=== PATIENT | female | born 1965 | race Caucasian/White ===

== ENCOUNTER 2025-03-08 10:34 | Emergency (ER) | payer BC, SELFPAY ==
--- NOTE | 2025-03-08 10:37 | ED.ALLEREA ---
HPI - Allergic Reaction General Chief complaint: Unspecified Stated complaint: tongue swollan Time Seen by Provider: 03/08/25 10:36 Source: patient Mode of arrival: ambulatory Limitations: no limitations History of Present Illness HPI narrative: Carmela is a 59 year old female patient presenting to the clinic today with c/o left lateral tongue numbness that started this morning when she woke up. Did feel as though she had some left facial numbness as well but that has resolved. Was eating popcorn last night and does not know if this is the cause or if she may have bit her tongue. She denies any difficulty swallowing, tongue swelling, drooling, facial asymmetry, slurred speech, or difficulty walking. She denies headache, visual changes, or dizziness. Related Data Home Medications ?Medication ?Instructions ?Recorded ?Confirmed ?Last Taken ?Type No Home Medications 03/08/25 03/08/25 Unknown History Allergies Allergy/AdvReac Type Severity Reaction Status Date / Time No Known Allergies Allergy Verified 03/08/25 10:55 Review of Systems Review of Systems: Pertinent positives per HPI. Patient denies any fever, chills, rash, headache, visual changes, dizziness, cough, shortness of breath, chest pain, palpitations, nausea, vomiting, diarrhea, constipation, abdominal pain, or any urinary issues. PMFSH Comments At the time of my signature, I reviewed and agree with the nursing past medical, surgical, social, and family history. There is no relevant family history pertinent to the patient complaint. Exam Narrative: General: Well-developed, well nourished, in no apparent distress Head: Normocephalic, atraumatic Eyes: Pupils equally round and reactive to light bilaterally, EOM intact, sclera and conjunctive clear, no discharge, lids normal Ears: TMs intact and clear, ear canals clear, no drainage, grossly hearing normal. Nose: Nares patent, no discharge, no inflammation, no sinus tenderness. Mouth: Oropharynx without lesions or masses, good dentition, MMM. Tongue midline, even rise and fall of uvula Neck: Supple, trachea midline, no enlargement of anterior or posterior cervical nodes, no thyroid masses or goiter palpable. Cardio: Regular rate and rhythm, s1 and s2 normal, no murmur appreciated. Resp: Clear to auscultation bilaterally anteriorly and posteriorly, no rhonchi, rales, wheezing or rubs Musculoskeletal: No deformity, non-tender to palpation, grossly normal range of motion, muscle strength strong and equal, peripheral pulse strong, no edema, no cyanosis, normal gait and station Neuro: Alert and oriented x4 with normal speech, no focal deficits, cranial nerves I through XII intact, muscle strength 5 out of 5, sensation intact bilaterally, negative Romberg test Course Course Emergency Course: Portions of this record may have been created with voice recognition software. Level of Care: Express Care Visit Vital Signs Vital signs: Vital Signs Temperature 37.1 C 03/08/25 10:39 Pulse Rate 83 03/08/25 10:39 Respiratory Rate 20 03/08/25 10:39 Blood Pressure 143/77 H 03/08/25 10:39 Pulse Oximetry 99 03/08/25 10:39 Oxygen Delivery Room Air 03/08/25 10:39 Temperature 37.1 C 03/08/25 10:39 Pulse Rate 83 03/08/25 10:39 Respiratory Rate 20 03/08/25 10:39 Blood Pressure 143/77 H 03/08/25 10:39 Pulse Oximetry 99 03/08/25 10:39 Oxygen Delivery Room Air 03/08/25 10:39 Vital signs reviewed MDM - Allergic Reaction MDM Narrative Medical decision making narrative: At the time of visit patient is resting comfortably on the exam table. Patient appears to be nontoxic. c/o left lateral tongue numbness that started this morning when she woke up. Did feel as though she had some left facial numbness as well but that has resolved. Was eating popcorn last night and does not know if this is the cause or if she may have bit her tongue. She denies any difficulty swallowing, tongue swelling, drooling, facial asymmetry, slurred speech, or difficulty walking. She denies headache, visual changes, or dizziness. On exam there are no lesions or sores seen to the left lateral tongue. No oropharyngeal lesions or masses, Neuro exam is negative. Tongue is midline with strong movement side to side- with even rise and fall of the uvula. Normal sensation to bilateral cheeks with palpation. Plan: I suspect patient has tongue paresthesia. Offer to send patient to the ER for further evaluation and she declined at this time. Recommend going to the emergency room if her symptoms worsen. Stroke/Ibarra's palsy symptoms were reviewed with the patient. Supportive measures were discussed with the patient and they voiced understanding discharge instructions and agrees to treatment plan. Return precautions reviewed Differential Diagnosis Differential diagnosis: Likely allergic reaction, angioedema and other (Ibarra's palsy, CVA, paresthesia, tongue injury, tongue lesion, herpes,) Discharge Plan Discharge Clinical Impression: Paresthesia of tongue Patient Disposition: Home Condition: Stable Instructions: Antibiotic Form, Paresthesia (ED) Additional Instructions: Urine neurologically intact-no sign of Ibarra's palsy or CVA at this time. Blood pressure is mildly elevated in the clinic 143/77 Offered to send you to the ER for further evaluation you declined. Recommend going home to observe If your symptoms worsen recommend going to the emergency room for further evaluation Follow-up with your PCP in 3-5 days if symptoms persist. Patient Language: [place] Prescriptions: No Action No Home Medications Follow-up/Referrals: Yuridia,HALIMA Chun [Primary Care Provider] Time of Disposition: 10:57 Quality NIHSS Nursing Documentation ED NIHSS nursing documentation: reviewed/agree
--- OUTSIDE RECORDS SUMMARY | 2025-03-08 10:37 | XMS_ITS | Clinical Summary ---
Author Organization [facility] Address [address] [place] [address] Care Team Providers Care Livestock Ranch Hand Name Role Phone Lay Shi NP Primary Care Provider [phone] Immunizations Immunization Administration Dates Next Due Influenza, Trivalent, Preservative Free, Intramu scular 05/29/2011 Tdap 05/29/2011 Medical History Medical History Date Comments Ganglion of wrist Ganglion of wr ist - (Added by Conv) Family History Medical History Relation Name Comments Alcohol abuse Father Alcoholism - ( Added by Conv) Alzheimer's disease Father Alzheime r's Disease - (Added by Conv) Epilepsy Mother Seizure Disorde r - (Added by Conv) Breast cancer Paternal Grandmother Relation Name Status Comments Father Mother Paternal Grandmother Social History Tobacco Use Types Packs/Day Years Used Date Smoking Tobacco: Never Assessed Comments No Sex and Gender Information Value Date Recorded Sex Assigned at Not on file Legal Sex 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 Gender Identity Not on file Sexual Orientation Not on file Obstetrics History Para Term AB IAB SAB Ectopic Multiple Livin g Live Births 2 2 2 Date Outcome GA Total Labor Labor/2nd/3rd Weight Sex Type Anes PTL Samreen A1 A5 Name Clin Term Term Last Filed Vital Signs Vital Sign Reading Time Taken Comments Blood Pressure 110/60 10/27/2012 2:22 PM CDT Pulse 74 10/27/2012 2:22 PM CDT Temperature - - Respiratory Rate - - Oxygen Saturation 97% 10/27/2012 2:22 PM CDT Inhaled Oxygen Concentration - - Weight 72.6 kg (160 lb) 10/16/2024 1:51 PM CDT Height 152.4 cm (5') 10/16/2024 1:51 PM CDT Body Mass Index 31.25 10/16/2024 1:51 PM CDT Plan of Treatment Health Maintenance Due Date Last Done Comments Cervical Cancer Screening 1966 Colon Cancer Screening-Colonoscopy 1966 Depression Screening 1966 Hepatitis C Screening 1966 Hepatitis B Screening 1984 Regular Well Visit/Exam 18-64 1984 Zoster Vaccine (1 of 2) 2016 Influenza Vaccine (#1) 2025 05/29/2011 Breast Cancer Screening-Mammogram 10/16/2025 10/16/2024 DTaP/Tdap/Td Vaccine (4 - Td or Tdap) 03/31/2034 03/31/2024, 03/31/2024, 05/29/2011 Pneumococcal vaccine <65 Aged Out No longer eligible based on patient's age to complete this topic Procedures Procedure Name Priority Date/Time Associated Diagnosis Comments DIAGNOSTIC MAMMOGRAM BILATERAL W PATRICK Schedule Routine, Read Routine (OP Routine) 10/16/2024 1:57 PM CDT Other abnormal and inconclusive findings on diagnostic imaging of breast from Last 3 Months or Most Recently Relevant to Health Maintenance Results * Diagnostic Mammogram Bilateral W Patrick (10/16/2024 1:57 PM CDT) Anatomical Region Laterality Modality Breast Bilateral Mammography 10/16/2024 2:13 PM CDT Impressions 10/16/2024 2:13 PM CDT 1. Bilateral breast findings of concern detected on outside screening mammogram from August 2020 have decreased in size, evidence of benignity. 2. Multiple small benign-appearing, circumscribed fluctuating masses in both breasts (including the findings of concern on prior mammogram), favored to represent benign fluctuating cysts. 3. No new suspicious finding in either breast on mammogram. Monthly breast self-examination and screening mammogram in one year are recommended. The patient was notified of these findings and recommendations at the time of the examination. OVERALL FINAL ASSESSMENT: BI-RADS Category 2: Benign. Electronically signed by: Tc Stevenson M.D. Narrative 10/16/2024 2:13 PM CDT EXAMINATION: BILATERAL DIGITAL DIAGNOSTIC MAMMOGRAM INCLUDING CAD AND BILATERAL DIGITAL BREAST TOMOSYNTHESIS HISTORY: 59-year-old female presents for evaluation of indeterminate bilateral breast findings identified on screening mammogram performed at an outside facility in August 2020. COMPARISON: Screening mammogram from [facility] ([place], [place]) dated 09/05/2020 TECHNIQUE: Full field digital mammographic views of BOTH breasts were performed, including computer aided detection (CAD) and BILATERAL digital breast tomosynthesis (DBT). BREAST PARENCHYMAL COMPOSITION: There are scattered areas of fibroglandular density. MAMMOGRAM FINDINGS: The previously identified oval circumscribed left breast mass of concern at the 2-3 o'clock position, anterior to middle depth, has decreased in size since August 2020, evidence of a benign etiology. The previously identified right breast asymmetry located central to the nipple, middle depth, on the CC view has also decreased in size, evidence of benign etiology. There are multiple small benign-appearing round and oval circumscribed masses in both breasts, some of which correlate with the findings of concern detected on prior screening mammogram. These masses are considered to be benign based on their morphology, multiplicity and bilaterality. Some of these masses have fluctuated in size from the prior mammogram, favored to represent benign fluctuating cysts. There are no suspicious calcifications or areas of architectural distortion in either breast. There is no new suspicious finding in either breast on mammogram. Quinton Lin MD IMG MAMMO PROCEDURES F inal Result from Last 3 Months or Most Recently Relevant to Health Maintenance Insurance [employer] [place] Care Teams Livestock Ranch Hand Relationship Specialty Start Date End Date Lay Shi NP [address] [place] [address] PCP - General Internal Auditor 07/18/24
[2025-03-08 10:39] VITALS: BP 143/77; PULSE 83; RESP 20; TEMP 37.1; O2SAT 99
--- OUTSIDE RECORDS SUMMARY | 2025-03-08 10:41 | XMS_ITS | Clinical Summary ---
Author Organization [facility] Address [address] [place] [id number] Care Team Providers Care Middleware Systems Architect Name Role Phone Lay Shi MACI Primary Care Provider [phone] Allergies No known active allergies Medications vitamin C 1000 MG tablet Take 1 tablet (1,000 mg total) by mouth daily. Active terbinafine (LAMISIL) 250 MG tablet Take 1 tablet (250 mg total) by mouth daily. 07/28/2024 Active probiotic (FLORAJEN3) Cap capsule Take 1 capsule by mouth 3 (three) times daily with meals. Active Active Problems No known active problems Immunizations Immunization Administration Dates Next Due Tdap (Generic) 03/31/2024 Family History Medical History Relation Comments Alcohol Abuse Father Epilepsy Mother Seizures Mother Relation Status Comments Father Mother Social History Tobacco Use Types Packs/Day Years Used Date Smoking Tobacco: Never Smokeless Tobacco: Never Alcohol Use Standard Drinks/Week Comments Yes 0 (1 standard drink = 0.6 oz pur e alcohol) very rare PHQ-2 Answer Date Recorded Patient Health Questionnaire-2 Score 0 08/10/2024 Comments No Sex and Gender Information Value Date Recorded Sex Assigned at Not on file Legal Sex Female 10:20 AM COP EXAMINER Gender Identity Not on file Sexual Orientation Not on file Last Filed Vital Signs Vital Sign Reading Time Taken Comments Blood Pressure 126/76 06/26/2021 9:52 AM COP EXAMINER Pulse 78 06/26/2021 9:52 AM COP EXAMINER Temperature 28.9 C (84 F) 08/10/2024 11:22 AM COP EXAMINER Respiratory Rate 18 06/26/2021 9:52 AM COP EXAMINER Oxygen Saturation 100% 08/10/2024 11:07 AM COP EXAMINER Inhaled Oxygen Concentration - - Weight 74.2 kg (163 lb 9.6 oz) 08/10/2024 11:07 AM COP EXAMINER Height 152.4 cm (5') 08/10/2024 11:07 AM COP EXAMINER Body Mass Index 31.95 08/10/2024 11:07 AM COP EXAMINER Plan of Treatment Health Maintenance Due Date Last Done Comments Cervical Cancer Screening Pa p Smear (Age 30 to 64) Every 3 Years 1966 Colorectal Cancer Screening Colonoscopy (10 Years) 1966 Hepatitis C 1984 Hepatitis B Vaccines (1 of 3 - 19+ 3-dose series) 1985 Cervical Cancer Screening Pa p with HPV Testing (Age 30 to 64) Every 5 Years 1996 Cervical Cancer Screening wi th HPV 1996 Mammogram Screening 2006 Pneumococcal Vaccine: 50+ Years (1 of 1 - PCV) 2016 Zoster Vaccines (1 of 2) 2016 Annual Physical 06/26/2022 06/26/2021 COVID-19 Vaccine (1 - 2023-2 5 season) 2024 DTaP, Tdap and Td Vaccines ( 3 - Td or Tdap) 03/31/2034 03/31/2024, 03/31/2024, 05/29/2011 PHQ-2 (Physician [place]) Completed 08/10/2024 Meningococcal B Vaccine Aged Out No l onger eligible based on patient's age to complete this topic Meningococcal Vaccine Aged Out No bekah chito eligible based on patient's age to complete this topic RSV Immunizations Under 20 Months Aged Out No longer eligible b ased on patient's age to complete this topic Care Teams Middleware Systems Architect Relationship Specialty Start Date End Date Lay Shi [place] [address] PCP - General NURSE PRACTITIONER 06/24/21
--- OUTSIDE RECORDS SUMMARY | 2025-03-08 10:41 | XMS_ITS | Clinical Summary ---
Author Organization [facility] Address [address] [place] [address] Care Team Providers Care Cone Machine Feeder Name Role Phone Timothy Mendez MD Primary Care Provider [phone] Source Comments [facility],non-owned Affiliates and Associated Physician Practices is amultiple site organization consisting of ambulatory clinics and hospital sitesin [place], [place], [place] and [place]. This disclosure is being madepursuant to the Care Everywhere program and may not contain all information available regarding this patient. Last updated 18.[facility] Allergies No known active allergies Medications * Be aware that medications may not be up to date on this document. Alwaysverify current medications with the patient. OtherIndications :otc medication for menopause Reasons: otc medication for menopause Active benzonatate (TESSALON) 200 MG capsuleIndicatio ns:Acute upper respiratory infection Take 1 capsule by mouth 3 times daily as needed for Cough 30 capsule 8 Active methylPREDNISolo ne (MEDROL DOSEPAK) 4 MG tabletIndication s:Acute upper respiratory infection Take by mouth as directed 1 Each 8 Active Social History Tobacco Use Types Packs/Day Years Used Date Smoking Tobacco: Never Assessed Comments Unknown Sex and Gender Information Value Date Recorded Sex Assigned at Not on file Legal Sex Female 8:12 AM FLYING SHEAR OPERATOR Gender Identity Not on file Sexual Orientation Not on file Last Filed Vital Signs Vital Sign Reading Time Taken Comments Blood Pressure 128/74 08/06/2017 8:21 AM FLYING SHEAR OPERATOR Pulse 97 08/06/2017 8:21 AM FLYING SHEAR OPERATOR Temperature 36.6 C (97.9 F) 08/06/2017 8:21 AM FLYING SHEAR OPERATOR Respiratory Rate - - Oxygen Saturation 97% 08/06/2017 8:21 AM FLYING SHEAR OPERATOR Inhaled Oxygen Concentration - - Weight 54.4 kg (120 lb) 08/06/2017 8:21 AM FLYING SHEAR OPERATOR Height 152.4 cm (5') 08/06/2017 8:21 AM FLYING SHEAR OPERATOR Body Mass Index 23.44 08/06/2017 8:21 AM FLYING SHEAR OPERATOR Plan of Treatment Health Maintenance Due Date Last Done Comments COLOGUARD (AGES 45-75) - COL ON CA SCREENING 1966 COLON MONITORING 1966 COLONOSCOPY - COLON CA SCREENING 1966 CT COLONOGRAPHY - COLON CA SCREENING 1966 Colorectal Cancer Screening 1966 FIT - COLON CA SCREENING 1966 FLEX SIG - COLON CA SCREENING 1966 LIPID TESTING 1966 MAMMOGRAM 1966 HIV SCREENING 1981 HEPATITIS C SCREENING 03/09/1984 DTAP/TDAP/TD VACCINES (1 - Tdap) 1985 HEPATITIS B VACCINE (1 of 3 - 19+ 3-dose series) 1985 PNEUMOCOCCAL VACCINE 50+ (1 of 1 - PCV) 2016 ZOSTER VACCINE (1 of 2) 2016 COVID-19 VACCINE ( - 2023-2 5 season) 2024 DEPRESSION SCREENING 07/12/2024 INFLUENZA VACCINE (#1) 2025 HIB VACCINE Aged Out No longer eligi ble based on patient's age to complete this topic HPV VACCINE Aged Out No longer eligi ble based on patient's age to complete this topic MENINGOCOCCAL (Group B) VACC INE SHARED DECISION-MAKING Aged Out No longer eligibl e based on patient's age to complete this topic MENINGOCOCCAL GROUPS A/C/Y/W VACCINE Aged Out No longer eligible b ased on patient's age to complete this topic Insurance ANTHEM Care Teams Cone Machine Feeder Relationship Specialty Start Date End Date Timothy Mendez MD [facility] [address] [address] PCP - General Internal Medicine 08/06/17
== END 2025-03-08 11:00 | disposition home or self-care (01) ==
PROVIDERS: Emergency Provider Nurse Practitioner Family; PCP Nurse Practitioner
DX: K14.8 Other diseases of tongue (principal)
CPT/HCPCS: 99202; G0463